=== PATIENT | male | born 1930 | race Caucasian/White ===

== ENCOUNTER 2017-02-18 11:59 | Emergency (ER) | payer BC ==
[2017-02-18 12:06] VITALS: BMI 25.8
--- NOTE | 2017-02-18 12:58 | PDOC ---
History of Present Illness - General Chief Complaint: Injury Stated Complaint: INJURY Time Seen by Provider: 02/18/17 12:41 - History of Present Illness Initial Comments: 02/18/17 21:32 Patient is an 86 y.o. male with a PMH of advanced dementia and HTN who presents to our ED today with daughter and following a witnessed mechanical fall with no head trauma or LOC. Patient's daughter provides the history that patient was getting up from the couch using a walker to lift himself up and his tremors prevented him from fully grasping the handlebars and he fell on his left side. As per , patient fell on his R side. Patient has been ambulatory since the incident however has been c/o of L or R hip pain. During course of HPI patient is intermittently combative and declines examination, patient more subdued and jocular following administration of afternoon Seroquel home dose. Past History - Past Medical History Allergies/Adverse Reactions: Allergies Allergy/AdvReac Type Severity Reaction Status Date / Time No Known Allergies Allergy Verified 02/18/17 12:02 Home Medications: Ambulatory Orders Aspirin [[place] Aspirin] 81 mg PO DAILY 05/29/11 Cholecalciferol (Vitamin D3) [Vitamin D -] 0 unit PO DAILY 05/29/11 Citalopram Hydrobromide [Celexa] 20 mg PO DAILY 05/29/11 Enalapril Maleate [Vasotec -] 5 mg PO DAILY 05/29/11 Furosemide [Lasix] 20 mg PO DAILY 05/29/11 Metoprolol Succinate [Toprol XL -] 50 mg PO DAILY 05/29/11 Simvastatin [Zocor] 10 mg PO DAILY 05/29/11 Acetaminophen [Tylenol .Regular Strength -] 650 mg PO Q6H PRN #0 tablet Guaifenesin [Robitussin -] 10 ml PO TID #0 ud 06/01/11 Cefuroxime Axetil [Ceftin -] 500 mg PO BID #20 tablet 07/13/13 Guaifenesin Dm [Robitussin Dm] 10 ml PO TID #0 cup 07/13/13 Cardiac Disorders: Yes COPD: No Dementia: Yes HTN: Yes Hypercholesterolemia: Yes Thyroid Disease: Yes - Surgical History Abdominal Surgery: Yes (HERNIA REPAIR) - Immunization History Immunization Up to Date: No - Suicide/Smoking/Psychosocial Hx Smoking Status: Yes Smoking History: Never smoked Have you smoked in the past 12 months: No Number of Cigarettes Smoked Daily: 0 If you are a former smoker, when did you quit?: 20YRS AGO Information on smoking cessation initiated: No Hx Alcohol Use: No Drug/Substance Use Hx: No Substance Use Type: None Review of Systems - Review of Systems Able to Perform ROS?: No *Physical Exam - Vital Signs Last Vital Signs Temp Pulse Resp BP Pulse Ox 67 18 146/57 100 02/18/17 12:03 02/18/17 12:03 02/18/17 12:03 02/18/17 12:03 - Physical Exam General Appearance: Yes: Nourished, Appropriately Dressed HEENT: positive: EOMI, DANIELA Neck: positive: Trachea midline, Supple Respiratory/Chest: positive: Lungs Clear Cardiovascular: positive: S1, S2 Vascular Pulses: Dorsalis-Pedis (R): 2+, Doralis-Pedis (L): 2+ Gastrointestinal/Abdominal: positive: Normal Bowel Sounds, Soft Extremity: positive: Normal Capillary Refill, Normal Inspection, Normal Range of Motion, Pelvis Stable, Other (Full ROM, 5/5 strength in B/L LE ) Neurologic: positive: Alert. negative: Fully Oriented (A&O x1 oriented to self , unable to identify location or date) Medical Decision Making - Medical Decision Making 02/18/17 21:42 Patient is an 86 y.o. male who presents following a mechanical fall. As patient has advanced dementia history obtained from and daughter who provide conflicting accounts of whether patient is c/o pain in R or L LE. Patient's who witnessed the fall initially notes LLE pain, but then states patient fell on R side and c/o RLE pain. Daughter consistently notes LLE pain. B/L imaging of hips shows no acute fracture or dislocation. Patient discharged home with family given return precautions. *DC/Admit/Observation/Transfer Diagnosis at time of Disposition: Fall - Discharge Dispostion Disposition: HOME Condition at time of disposition: Good Admit: No - Referrals Referrals: Roshan Weldon MD [Primary Care Provider] - - Patient Instructions Printed Discharge Instructions: Muscle Strain, DI for Muscle Strain Additional Instructions: Please return to the Emergency Department for any worsening or concerning symptoms - Post Discharge Activity
[2017-02-18] MEDS ORDERED: QUEtiapine FUMARATE 50 MG TABLET PO ONE (13:39)
[2017-02-18] MEDS ORDERED: QUEtiapine FUMARATE 25 MG TABLET (FP) ONE ×2 (13:50→13:55)
--- NOTE | 2017-02-18 14:42 | PDOC ---
Attending Attestation - Resident Resident Name: Mulu Hardy - ED Attending Attestation I have performed the following: I have examined & evaluated the patient, The case was reviewed & discussed with the resident, I agree w/resident's findings & plan, Exceptions are as noted
[2017-02-18 17:36] VITALS: BP 138/62; PULSE 66
== END 2017-02-18 17:36 | disposition home or self-care (01) ==
LOC: JER 11:59
DX: W18.39XA Other fall on same level, initial encounter (principal); Y93.89 Activity, other specified; Y92.9 Unspecified place or not applicable; F03.90 Unspecified dementia, unspecified severity, without behavioral disturbance, psychotic disturbance, mood disturbance, and anxiety; I10 Essential (primary) hypertension; E07.9 Disorder of thyroid, unspecified; Z87.891 Personal history of nicotine dependence
CPT/HCPCS: 73523-TC; 99283-25

== ENCOUNTER 2017-03-12 17:40 | Inpatient (IN) | payer BC, OTHER ==
--- NOTE | 2017-03-12 17:55 | PDOC ---
Attending Attestation - Resident Resident Name: Raj Tenorio - ED Attending Attestation I have performed the following: I have examined & evaluated the patient, The case was reviewed & discussed with the resident, I agree w/resident's findings & plan, Exceptions are as noted - HPI HPI: 86 yo M history HTN, dementia, emphysema presents with weakness for past few days. He was brought in by EMS today when family noted he was struggling to breathe. The family has noticed recent cough, decreased appetite, decreased appetite. At baseline, he is intermittently combative, but always active. He has not been active today. - Physicial Exam PE: GENERAL: Lethargic, altered, with respiratory distress, +pallor. HEAD: No signs of trauma EYES: PERRLA, EOMI, sclera anicteric, conjunctiva clear ENT: Auricles normal inspection, hearing grossly normal, nares patent, oropharynx clear without exudates. Dry mucosa NECK: Normal ROM, supple, no lymphadenopathy, JVD, or masses LUNGS: Dec air entry L lung landeros. R lung CTA. HEART: Regular rate and rhythm, normal S1 and S2, no murmurs, rubs or gallops ABDOMEN: Soft, nontender, normoactive bowel sounds. No guarding, no rebound. No masses EXTREMITIES: Normal range of motion, no edema. No clubbing or cyanosis. No cords, erythema, or tenderness NEUROLOGICAL: Limited by AMS. Moving all extremities. SKIN: Warm, Dry, normal turgor, no rashes or lesions noted. - Critical Care Time Total Critical Care Time: 45 Critical Care Statement: The care of this patient involved high complexity decision making to prevent further life threatening deterioration of the patient 's condition and/or to evaluate & treat vital organ system(s) failure or risk of failure. - Medical Decision Making Pt with sepsis due to severe L-sided pneumonia. Will treat with high flow O2, broad spectrum abx, and IVF resuscitation. Patient admitted to ICU. Patient's family signed DNR/DNI, however, wish for treatment of sepsis/pna. They declined blood transfusion for severe anemia.
[2017-03-12] MEDS ORDERED: SODIUM CHLORIDE 1,000 ML IV STA (18:02)
--- NOTE | 2017-03-12 18:50 | PDOC ---
History of Present Illness - General Chief Complaint: Altered Mental Status Stated Complaint: Altered Mental Status Time Seen by Provider: 03/12/17 17:51 History Source: Patient Exam Limitations: No Limitations - History of Present Illness Initial Comments: 03/12/17 18:39 Patient is an 86M with history of HTN, advanced dementia and emphysema here today complaining of weakness. Family reports the patient has had a cough, decreased po intake, and decrease in his activity level. They state that he is normally very demented, but is very interactive with his environment. They worry that he is dehydrated. He's had several falls in the past week. Patient takes aspirin 81, family denies blood thinners. No vomiting or fevers reported. Past History - Past Medical History Allergies/Adverse Reactions: Allergies Allergy/AdvReac Type Severity Reaction Status Date / Time No Known Allergies Allergy Verified 03/12/17 17:50 Home Medications: Ambulatory Orders Aspirin [[place] Aspirin] 81 mg PO DAILY 05/29/11 Cholecalciferol (Vitamin D3) [Vitamin D -] 0 unit PO DAILY 05/29/11 Citalopram Hydrobromide [Celexa] 20 mg PO DAILY 05/29/11 Enalapril Maleate [Vasotec -] 5 mg PO DAILY 05/29/11 Furosemide [Lasix] 20 mg PO DAILY 05/29/11 Metoprolol Succinate [Toprol XL -] 50 mg PO DAILY 05/29/11 Simvastatin [Zocor] 10 mg PO DAILY 05/29/11 Acetaminophen [Tylenol .Regular Strength -] 650 mg PO Q6H PRN #0 tablet Guaifenesin [Robitussin -] 10 ml PO TID #0 ud 06/01/11 Cefuroxime Axetil [Ceftin -] 500 mg PO BID #20 tablet 07/13/13 Guaifenesin Dm [Robitussin Dm] 10 ml PO TID #0 cup 07/13/13 Cardiac Disorders: Yes COPD: No Dementia: Yes HTN: Yes Hypercholesterolemia: Yes Thyroid Disease: Yes - Surgical History Abdominal Surgery: Yes (HERNIA REPAIR) - Immunization History Immunization Up to Date: No - Suicide/Smoking/Psychosocial Hx Smoking Status: Yes Smoking History: Former smoker Have you smoked in the past 12 months: No Number of Cigarettes Smoked Daily: 0 If you are a former smoker, when did you quit?: 20YRS AGO Information on smoking cessation initiated: No Hx Alcohol Use: No Drug/Substance Use Hx: No Substance Use Type: None Review of Systems - Review of Systems Able to Perform ROS?: No (2/2 pt dementia) *Physical Exam - Vital Signs Last Vital Signs Temp Pulse Resp BP Pulse Ox 101 H 22 93/52 92 L 03/12/17 17:50 03/12/17 17:50 03/12/17 17:50 03/12/17 17:50 - Physical Exam Comments: 03/12/17 19:06 GENERAL: Awake, alert, disoriented, ill-appearing HEAD: No signs of trauma, normocephalic, atraumatic EYES: PERRLA, EOMI, sclera anicteric, conjunctiva clear ENT: Auricles normal inspection, hearing grossly normal, nares patent. Dry mucosa, chapped lips. NECK: Normal ROM, supple, no lymphadenopathy, JVD, or masses LUNGS: No distress, speaks full sentences, clear to auscultation bilaterally HEART: Tachycardic, Regular rhythm, normal S1 and S2, no murmurs, rubs or gallops, peripheral pulses normal and equal bilaterally. ABDOMEN: Soft, nontender, normoactive bowel sounds. No guarding, no rebound. No masses EXTREMITIES: Normal inspection, Normal range of motion, no edema. No clubbing or cyanosis. NEUROLOGICAL: Cranial nerves II through XII grossly intact. Normal speech, no focal sensorimotor deficits SKIN: Warm, Dry, normal turgor, no rashes or lesions noted. ED Treatment Course - LABORATORY CBC & Chemistry Diagram: 03/12/17 18:45 03/12/17 18:45 - RADIOLOGY Radiology Studies Ordered: Category Date Time Status CHEST X-RAY PORTABLE* [RAD] Stat Radiology 03/12/17 18:02 Ordered Medical Decision Making - Medical Decision Making 03/12/17 19:09 86M here today with AMS. Vital signs notable for tachycardia and satting 80% on arrival. Failed nasal cannula, failed non-rebreather. Not a candidate for bipap given altered status. Started on HFNC. Given 1L normal saline. Septic workup initiated. Initial VBG shows pO2 of 16. ABG after HFNC shows pO2 of >100. Differential diagnosis includes, but is not limited to: pneumonia, uti, septicemia, other infections source. 03/12/17 19:15 EKG shows RBBB morphology, is of limited value due to patient's baseline tremor. Rate 110. EKG report in 2013 says RBBB. Signed out to Dr Back. *DC/Admit/Observation/Transfer Diagnosis at time of Disposition: Altered mental status - Referrals Referrals: Roshan Weldon MD [Primary Care Provider] - - Patient Instructions - Post Discharge Activity
[2017-03-12 18:55] LABS: HEMATOCRIT 22.4 % (35.4-49); MCH 33.8 pg (25.7-33.7); MEAN CELL VOLUME 112.5 fl (80-96); MEAN PLT VOLUME 10.1 fl (7.5-11.1); PLATELET COUNT 338 K/MM3 (134-434); RBC 1.99 M/mm3 (4.00-5.60); RDW 19.3 % (11.9-15.9); WHITE BLOOD COUNT 27.9 K/mm3 (4.0-10.0)
[2017-03-12 18:55] LABS: VENOUS PC02 47.6 mmHg (38-52); VENOUS PH 7.36 (7.32-7.42)
[2017-03-12 18:56] LABS: VENOUS PO2 16.4 mmHg (28-48)
[2017-03-12 19:04] LABS: ARTERIAL BLD GAS O2 SATURATION 98.9 % (90-98.9); ARTERIAL BLOOD GAS BASE EXCESS -0.4 meq/l (-2-2); ARTERIAL BLOOD GAS PCO2 34.9 mmHg (35-45); ARTERIAL BLOOD GAS pH 7.44 (7.35-7.45); CARBOXYHEMOGLOBIN 1.8 gm% (0.5-2.0)
[2017-03-12 19:05] LABS: ALLENS TEST POSITIVE
[2017-03-12 19:12] LABS: INR 1.15 (0.82-1.09)
[2017-03-12 19:14] LABS: HEMOGLOBIN 6.7 GM/dL (11.7-16.9)
[2017-03-12 19:15] LABS: ACTIVATED PTT 24.9 SECONDS (26.9-34.4)
--- NOTE | 2017-03-12 19:27 | PDOC ---
*Physical Exam - Vital Signs Last Vital Signs Temp Pulse Resp BP Pulse Ox 102 H 22 97/58 100 03/12/17 19:18 03/12/17 19:18 03/12/17 19:18 03/12/17 19:18 ED Treatment Course - LABORATORY CBC & Chemistry Diagram: 03/12/17 18:45 03/12/17 18:45 - ADDITIONAL ORDERS Additional order review: Laboratory Results 03/12/17 03/12/17 18:55 18:25 Anticoagulation Therapy No Result Required. Puncture Site Right radial ABG pH 7.44 ABG pCO2 at Pt Temp 34.9 L ABG pO2 at Pt Temp 115.0 H D ABG HCO3 23.2 ABG O2 Sat (Measured) 98.9 ABG O2 Content 8.9 L* ABG Base Excess -0.4 Saul Test Positive VBG pH 7.36 POC VBG pCO2 47.6 POC VBG pO2 16.4 L* Mixed VBG HCO3 25.9 H Carboxyhemoglobin 1.8 Methemoglobin 0.7 O2 Delivery Device High flow Oxygen Flow Rate 60 Vent Mode No Result Required. Vent Rate 60l Mechanical Rate No Result Required. PEEP 0.0 Pressure Support Vent No Result Required. 03/12/17 18:45 RBC 1.99 L D MCV 112.5 H MCHC 30.0 L RDW 19.3 H D MPV 10.1 Neutrophils % No Result Required. Lymphocytes % No Result Required. - Medications Given in the ED: ED Medications Discontinued Medications Generic Name Dose Route Start Last Admin Trade Name Freq PRN Reason Stop Dose Admin Fentanyl 50 mcg 03/12/17 18:32 03/12/17 18:49 Sublimaze Injection - IVPUSH 03/12/17 18:33 50 mcg ONCE ONE Administration Sodium Chloride 1,000 mls @ 1,000 mls/hr 03/12/17 18:02 03/12/17 18:41 Normal Saline - IV 03/12/17 19:01 1,000 mls/hr ASDIR STA Administration Medical Decision Making - Medical Decision Making 03/12/17 19:25 The patient was signed out to me by Dr. Tenorio. The patient is an 86M with a PMH of HTN, dementia, and emphysema who presents with weakness, decreased PO intake and lethargy. Initially satting in the low 80 's. Currently on high flow NC 60L on 60% satting 100%. EKG shows tremulous shaking but grossly looks unchanged. DNR/DNI signed. Will monitor closely. 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 Hospitalist microblogged. CT chest shows gross congestion of L lung with large heart and ascites. Family was informed of Hgb level and does not want blood given. 03/12/17 21:41 Dr. Vega accepts admission. Plan in ED: continue fluids, give broad spectrum abx, monitor O2 sats. 03/12/17 22:49 Daughter is stating that the patient is getting more agitated. On exam, patient is moving around more and grabbing at his NC and wires. Will order 50mcg fentanyl for comfort. *DC/Admit/Observation/Transfer Diagnosis at time of Disposition: Altered mental status Qualifiers: Altered mental status type: unspecified Qualified Code(s): R41.82 - Altered mental status, unspecified - Discharge Dispostion Condition at time of disposition: Guarded Admit: Yes - Referrals Referrals: Roshan Weldon MD [Primary Care Provider] - - Patient Instructions - Post Discharge Activity
[2017-03-12 19:31] LABS: ALBUMIN 2.9 g/dl (3.4-5.0); ANION GAP 8 (8-16); BILIRUBIN,TOTAL 0.6 mg/dL (0.2-1.0); BLOOD UREA NITROGEN 76 mg/dL (7-18); CALCIUM 8.3 mg/dL (8.5-10.1); CHLORIDE 122 mmol/L (98-107); CO2 27 mmol/L (21-32); CREATININE 2.4 mg/dL (0.7-1.3); GLUCOSE,RANDOM 162 mg/dL (74-106); POTASSIUM 4.6 mmol/L (3.5-5.1); SGOT/AST 20 U/L (15-37); SGPT/ALT 14 U/L (12-78); SODIUM 157 mmol/L (136-145)
[2017-03-12 19:34] LABS: ALK PHOS 132 U/L (45-117)
[2017-03-12] MEDS ORDERED: PIPERACILLIN/TAZOB 3.375 GM/50 ML PRE-DOCKED IV ONE (20:06)
[2017-03-12] MEDS ORDERED: VANCOMYCIN 1,000 MG in DEXTROSE 5%-WATER - 250 ML IVPB ONE (20:06)
[2017-03-12] MEDS ORDERED: PIPERACILLIN/TAZOB 4.5 GM/100 ML PRE-DOCKED IVPB ONE (20:07)
[2017-03-12] MEDS ORDERED: PIPERACILLIN/TAZOB 4.5 GM 4.5 GM/100 ML BAG IVPB ONE (20:18)
[2017-03-12] MEDS ORDERED: VANCOMYCIN 1 GRAM (PRE-DOCKED) 1,000 MG/250 ML BAG IVPB ONE (20:18)
[2017-03-12] MEDS ORDERED: SODIUM CHLORIDE 0.9% 1000 ML INFUS.BAG IV ONE (20:23)
[2017-03-12 20:29] LABS: URINE APPEARANCE CLOUDY; URINE BILIRUBIN NEGATIVE (NEGATIVE); URINE BLOOD NEGATIVE (NEGATIVE); URINE COLOR YELLOW; URINE GLUCOSE (UA) NEGATIVE (NEGATIVE); URINE KETONE NEGATIVE (NEGATIVE); URINE LEUK ESTERASE NEGATIVE (NEGATIVE); URINE NITRITE NEGATIVE (NEGATIVE); URINE PROTEIN NEGATIVE (NEGATIVE); URINE UROBILINOGEN NEGATIVE mg/dL (0.2-1.0)
--- NOTE | 2017-03-12 21:53 | HP ---
Admitting History and Physical - Primary Care Physician PCP: Roshan Weldon - Admission Chief Complaint: Cough, Generalized Weakness, Decreased Appetite, Frequent Falls History of Present Illness: This is a 86 y/o man with a past medical history of Hypertension, Hyperlipidemia , Hypothyroid, Advanced Dementia. Who was BIBA from home to the ED, with family for increased weakness, decreased appetite, non-productive cough, recent falls. Patient's daughter was at bedside who provided HPI. She reports that her mother called her this morning stating "that her father was very weak." She states that the patient was at his baseline last week, but has been falling with the use of his walker lately. She also reports that over the last several days the patient has been having a non-productive cough and subjective fever (felt warm to touch). The daughter reports that the patient's appetite has severely declined over the last two days. 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 Cardiovascular: Yes: HTN, Hyperlipdemia Endocrine: Yes: Hypothyroidism - Past Surgical History Past Surgical History: Yes: Hernia Repair - Advance Directives Advance Directives: Yes: DNR (DNI) - Smoking History Smoking history: Former smoker Have you smoked in the past 12 months: No Aproximately how many cigarettes per day: 0 If you are a former smoker, when did you quit?: 20YRS AGO - Alcohol/Substance Use Hx Alcohol Use: No History of Substance Use: reports: None - Social History Usual Living Arrangement: Yes: With Spouse ADL: Family Assistance History of Recent Travel: No Home Medications - Allergies Allergies/Adverse Reactions: Allergies Allergy/AdvReac Type Severity Reaction Status Date / Time No Known Allergies Allergy Verified 03/12/17 17:50 - Home Medications Home Medications: Ambulatory Orders Aspirin [[place] Aspirin] 81 mg PO DAILY 05/29/11 Cholecalciferol (Vitamin D3) [Vitamin D -] 0 unit PO DAILY 05/29/11 Citalopram Hydrobromide [Celexa] 20 mg PO DAILY 05/29/11 Enalapril Maleate [Vasotec -] 5 mg PO DAILY 05/29/11 Metoprolol Succinate [Toprol XL -] 50 mg PO DAILY 05/29/11 Simvastatin [Zocor] 10 mg PO DAILY 05/29/11 Cefuroxime Axetil [Ceftin -] 500 mg PO BID #20 tablet 07/13/13 Family Disease History - Family Disease History Family History: Unable to Obtain Review of Systems Unable to obtain ROS, reason: Dementia Physical Examination Vital Signs: Vital Signs Temperature Pulse Rate 102 H 03/12/17 19:18 Respiratory Rate 22 03/12/17 19:18 Blood Pressure 97/58 03/12/17 19:18 O2 Sat by Pulse Oximetry (%) 100 03/12/17 19:18 Constitutional: Yes: Moderate Distress, Pallor, Thin Eyes: Yes: Conjunctiva Clear HENT: Yes: WNL, Atraumatic, Normocephalic Neck: Yes: WNL, Supple, Trachea Midline Cardiovascular: Yes: Regular Rate and Rhythm, S1, S2 Respiratory: Yes: Diminished (Left lobes), Other (high flow nasal cannula) Gastrointestinal: Yes: Soft, Hypoactive Bowel Sounds ...Rectal Exam: Yes: Guaiac Positive Renal/: Yes: [place] Present (dark yellow urine 15cc in collection bag) Breast(s): Yes: WNL Extremities: Yes: Pallor Edema: No Peripheral Pulses WNL: Yes Integumentary: Yes: Bruising (right lateral thight) Neurological: Yes: Lethargy Labs: CBC, BMP 03/12/17 18:45 03/12/17 18:45 Imaging - Results Chest X-ray: Image Reviewed Cat Scan: Report Reviewed (CT head- mild to moderate periventricular and subcortical chronic microvascular ischemic changes, Generalized cerebral atrophy ), Image Reviewed EKG: Image Reviewed (Sinus Tachycardia 110 bpm with PVCs. RBBB. t wave abnormality, consider inferolateral ischemia) Problem List - Problems (1) Acute respiratory failure with hypoxia Code(s): J96.01 - ACUTE RESPIRATORY FAILURE WITH HYPOXIA (2) Severe sepsis Code(s): A41.9 - SEPSIS, UNSPECIFIED ORGANISM; R65.20 - SEVERE SEPSIS WITHOUT SEPTIC SHOCK (3) Pneumonia Code(s): J18.9 - PNEUMONIA, UNSPECIFIED ORGANISM (4) Lactic acidosis Code(s): E87.2 - ACIDOSIS (5) Anemia Code(s): D64.9 - ANEMIA, UNSPECIFIED (6) Acute hypernatremia Code(s): E87.0 - HYPEROSMOLALITY AND HYPERNATREMIA (7) Acute renal failure Code(s): N17.9 - ACUTE KIDNEY FAILURE, UNSPECIFIED (8) Altered mental status Code(s): R41.82 - ALTERED MENTAL STATUS, UNSPECIFIED Qualifiers: Altered mental status type: unspecified Qualified Code(s): R41.82 - Altered mental status, unspecified (9) Weakness Code(s): R53.1 - WEAKNESS (10) Fall Code(s): W19.XXXA - UNSPECIFIED FALL, INITIAL ENCOUNTER (11) HTN (hypertension) Code(s): I10 - ESSENTIAL (PRIMARY) HYPERTENSION (12) COPD (chronic obstructive pulmonary disease) Code(s): J44.9 - CHRONIC OBSTRUCTIVE PULMONARY DISEASE, UNSPECIFIED (13) Advanced dementia Code(s): F03.90 - UNSPECIFIED DEMENTIA WITHOUT BEHAVIORAL DISTURBANCE (14) DVT prophylaxis Code(s): ZZG1103 - Assessment/Plan This is a 86 y/o man with a PMHx of: Hypertension, COPD, Advanced Dementia. Admitted to ICU Acute Respiratory Failure with Hypoxia secondary to Pneumonia, Severe Sepsis, Hypernatremia, Anemia Plan: 1. Acute Respiratory Failure with Hypoxia - Likely secondary to CAP - Continue cardiac monitoring - Chest Xray image- reviewed, pending report - Chest CT- pending - AB.44/34.9/115/23.2 - Continue highflow nasal cannula- (family does not want Intubation or anything aggressive, patient has a DNI) - Appreciate Pulmonology consult 2. Severe Sepsis - Likely secondary to CAP - qSOFA Score 3 - SIRS Criteria Met V- WBC 27.9, BUN 76, LA 3.9~2.6~2.2, BP 93/50, Spo2 92% 2L - Blood cultures-pending - Urine culture-pending - Rapid Influenza-pending - Vancomycin and Zosyn given in ED, will continue based on renal dosing - Appreciate ID consult - Appreciate Pulmonology consult - Continue cardiac monitoring - Maintain MAP >65 - Tylenol prn - Monitor CBC, BMP - Strict INOs 3. CAP - CURB65 Score 3 - Empirically treating with Vancomycin/Zosyn - See Above 4. Hypernatremia - Likely secondary to severe dehydration vs gastric losses - Free Water Deficit 4.5L - 2L NS bolus given in ED - Will start D5W@42cc/hr concern for fluid overload - Monitor BMP 5. Anemia - Hgb 6.7 - Unknown baseline - Stool Occult- positive - Patient's and daughter agree to transfusion of PRBCs - PRBCs x2 now - Repeat CBC post transfusion - Monitor vitals 6. Hypertension - Hold meds secondary to severe sepsis 7. COPD - Hold meds for now secondary to Acute Respiratory Failure with Hypoxia - Appreciate Pulm Consult 8. Advanced Dementia - Fentanyl given in the ED for agitation - Will continue to monitor and treat with interventions accordingly - Hold home med 2/2 severe lethargy 9. FEN - D5W@42ml/hr - Replete lytes as indicated - NPO 10. DVT Prophylaxis - TEDs - SCDs - Hold ACs secondary to Anemia Code Status: DNR/DNI Dispo: Requires Inpatient Critical Care Visit type - Emergency Visit Emergency Visit: Yes ED Registration Date: 03/12/17 Care time: The patient presented to the Emergency Department on the above date and was hospitalized for further evaluation of their emergent condition. - New Patient This patient is new to me today: Yes Date on this admission: 03/12/17 - Critical Care Critical Care patient: Yes Total Critical Care Time (in minutes): 35 Critical Care Statement: The care of this patient involved high complexity decision making to prevent further life threatening deterioration of the patient 's condition and/or to evaluate & treat vital organ system(s) failure or risk of failure.
[2017-03-12] MEDS ORDERED: CHLORHEXIDINE GLUCONATE 4% CLEANSER FOR DECOLONIZATION TP SCH (22:00)
[2017-03-12] MEDS ORDERED: MUPIROCIN 2% TOPICAL OINTMENT FOR DECOLONIZATION NS SCH (22:00)
[2017-03-12 22:26] LABS: SMUDGE CELLS FEW
[2017-03-12 22:27] LABS: ANISOCYTOSIS 2+; MACROCYTOSIS 3+
[2017-03-12] MEDS ORDERED: SODIUM CHLORIDE 1,000 ML IV SCH (23:45)
[2017-03-13] MEDS ORDERED: morphine CARPU-JECT 4 MG/1 ML DISP.SYRIN IVPUSH PRN (01:19)
[2017-03-13] MEDS ORDERED: morphine SULFATE 4 MG/ML VIAL ONE (01:27)
--- NOTE | 2017-03-13 01:30 | CONSULT ---
Consult Consult Specialty:: Pulmonary critical care Reason for Consultation:: SOB - History of Present Illness Chief Complaint: SOB, weakness History of Present Illness: Pt is an 86 yo male with h/o HTN, advanced dementia, emphysema who was brought into ER today with weakness as well as decreased PO intake. As per family pt also has had several falls in the past week. Initial labs notable for WBC 28, Hgb 6.7, Na 157, Cr 2.4, Lactate 3.9. On arrival to ED pt SpO2 in 80s on RA. NC as well as NRB attempted, now on HFNC with SpO2 100%. CT chest done and showed dense consolidation vs collapse of L lung. Pt given 3L of NS, started on vanco/ zosyn and is now transferred to ICU for further management. Of note, pt DNR/ DNI. Active Medications Chlorhexidine Gluconate (Hibiclens For Decolonization -) 1 applic TP HS SUPRIYA Sodium Chloride (Normal Saline -) 1,000 mls @ 75 mls/hr IV ASDIR SUPRIYA Morphine Sulfate (Morphine Injection -) 4 mg IVPUSH Q3H PRN PRN Reason: PAIN LEVEL 1-5 Stop: 03/14/17 01:18 Mupirocin (Bactroban Ointment (For Decolonization) -) 1 applic NS BID SUPRIYA Stop: 03/17/17 21:59 - Alcohol/Substance Use Hx Alcohol Use: No - Smoking History Smoking history: Former smoker Have you smoked in the past 12 months: No Aproximately how many cigarettes per day: 0 If you are a former smoker, when did you quit?: 20YRS AGO Home Medications - Allergies Allergies/Adverse Reactions: Allergies Allergy/AdvReac Type Severity Reaction Status Date / Time No Known Allergies Allergy Verified 03/12/17 17:50 - Home Medications Home Medications: Ambulatory Orders Aspirin [[place] Aspirin] 81 mg PO DAILY 05/29/11 Cholecalciferol (Vitamin D3) [Vitamin D -] 0 unit PO DAILY 05/29/11 Citalopram Hydrobromide [Celexa] 20 mg PO DAILY 05/29/11 Enalapril Maleate [Vasotec -] 5 mg PO DAILY 05/29/11 Metoprolol Succinate [Toprol XL -] 50 mg PO DAILY 05/29/11 Simvastatin [Zocor] 10 mg PO DAILY 05/29/11 Cefuroxime Axetil [Ceftin -] 500 mg PO BID #20 tablet 07/13/13 Physical Exam Vital Signs: Vital Signs Temperature Pulse Rate 91 H 03/12/17 23:15 Respiratory Rate 17 03/12/17 23:15 Blood Pressure 110/45 03/12/17 23:15 O2 Sat by Pulse Oximetry (%) 95 03/13/17 00:20 Constitutional: Yes: Moderate Distress Cardiovascular: Yes: Tachycardia, S1, S2 Respiratory: Yes: On Nasal O2, Rhonchi (gurgly cough, L side diminished) Gastrointestinal: Yes: Normal Bowel Sounds, Soft Edema: No Neurological: Yes: Other (thrashing around, very agitated, not following commands (baseline as per family at bedside)) Labs: CBC, BMP 03/12/17 18:45 03/12/17 18:45 Imaging - Results Chest X-ray: Image Reviewed Cat Scan: Image Reviewed Assessment/Plan Hypoxemic respiratory failure in the setting of dense L lung infiltrate Sepsis 2/2 PNA Hypernatremia likely hypovolemic in the setting of poor PO intake YADI likely prerenal in the setting of decreased PO intake Lactic acidosis improving Anemia, no overt signs of bleeding Agitation/AMS 2/2 dementia likely exacerbated by hypernatremia Tachycardia likely in the setting of severe agitation -HFNC -->titrate as tolerated -chest PT and suctioning if pt allows -send sputum sample if able -cont Zosyn/Vanco (as rec'd in ER) -recd fluids in ER (?2L of NS) -recheck BMP now -NS maintenance to correct hypernatremia -will need further w/u of YADI if no improvement with fluids -trend lactate -transfuse 1 unit of PRBC -heparin SubQ for ppx -EKG -pt DNR/DNI GWEN [facility] Critical Care time: 35 min
[2017-03-13] MEDS ORDERED: morphine CARPU-JECT 4 MG/1 ML DISP.SYRIN IVPUSH ONE (01:33)
[2017-03-13 01:58] VITALS: PULSE 146; TEMP 98.5; BMI 24.3
[2017-03-13] MEDS ORDERED: DEXTROSE 5%-WATER - 1,000 ML IV SCH (02:30)
[2017-03-13 04:34] VITALS: BP 70/40
--- NOTE | 2017-03-13 13:06 | EKG ---
Test Reason : Blood Pressure : / mmHG Vent. Rate : 110 BPM Atrial Rate : 110 BPM P-R Int : 126 ms QRS Dur : 126 ms QT Int : 370 ms P-R-T Axes : 000 012 264 degrees QTc Int : 500 ms POOR DATA QUALITY, INTERPRETATION MAY BE ADVERSELY AFFECTED SINUS TACHYCARDIA WITH PREMATURE ATRIAL COMPLEXES WITH ABERRANT CONDUCTION RIGHT BUNDLE BRANCH BLOCK T WAVE ABNORMALITY, CONSIDER INFEROLATERAL ISCHEMIA ABNORMAL ECG WHEN COMPARED WITH ECG OF 10-JUL-2013 20:49, T WAVE INVERSION NOW EVIDENT IN LATERAL LEADS Confirmed by IZA DYER MD ([id number]) on 03/13/2017 1:05:46 PM Referred By: Confirmed By:IZA DYER MD
== END 2017-03-13 04:58 | disposition expired | DRG 871 ==
LOC: JER 17:40 → JERBED 21:42 → JICU 03-13 01:00
PROVIDERS: ADMIT Internal Medicine; ATTEND Internal Medicine
DX: A41.9 Sepsis, unspecified organism (principal); J18.9 Pneumonia, unspecified organism; J96.01 Acute respiratory failure with hypoxia; E87.0 Hyperosmolality and hypernatremia; E87.2 Acidosis; N17.9 Acute kidney failure, unspecified; R65.20 Severe sepsis without septic shock; J43.9 Emphysema, unspecified; I10 Essential (primary) hypertension; F03.90 Unspecified dementia, unspecified severity, without behavioral disturbance, psychotic disturbance, mood disturbance, and anxiety; Z66 Do not resuscitate; E78.00 Pure hypercholesterolemia, unspecified; Z87.891 Personal history of nicotine dependence; I45.10 Unspecified right bundle-branch block; D64.9 Anemia, unspecified; E86.1 Hypovolemia; R45.1 Restlessness and agitation
CPT/HCPCS: 36415; 36430; 36511; 36600; 70450-TC; 71010-TC; 71250-TC; 80053; 81003; 82272; 82375; 82550; 82553; 82570; 82803; 83050; 83605; 84156; 84300; 84484; 85025; 85610; 85730; 86850; 86900; 86901; 86922; 87040; 87086; 87804; 93005; 93010; 94660; 99285-25; P9038; P9058